=== PATIENT | female | born 2000 | race Caucasian/White ===

== ENCOUNTER 2024-04-16 10:07 | Emergency (ER) | payer MEDICAID ==
[~2024-04-16] VITALS: Ht 152.4 cm; Wt 58.9 kg
[2024-04-16 10:10] VITALS: PULSE 104; RESP 18; O2SAT 99
[2024-04-16 10:15] VITALS: BP 102/62; TEMP 98.1; O2SAT 99
[2024-04-16] MEDS: ONDANSETRON 4MG ODT PO ONE (10:45)
[2024-04-16] MEDS ORDERED: ONDA-239 PO (10:52)
== END 2024-04-16 12:51 | disposition home or self-care (01) ==
LOC: ER 10:07
DX: R11.2 Nausea with vomiting, unspecified (principal)
CPT/HCPCS: 81025; 99283; Q0162